=== PATIENT | male | born 1995 | race Caucasian/White ===

== ENCOUNTER 2020-12-12 20:20 | Emergency (ER) | payer OTHER ==
[~2020-12-12] VITALS: Ht 172.7 cm; Wt 93.0 kg
[2020-12-12 20:28] VITALS: BP_SYST 138
[2020-12-12] MEDS ORDERED: MIDAZOLAM HCL 5 MG/5 ML VIAL IVP ONE (21:00)
[2020-12-12] MEDS ORDERED: HALOPERIDOL LACTATE 5 MG/ML VIAL IVP ONE (21:00)
== END 2020-12-12 21:25 | disposition left against medical advice (07) ==
LOC: SED 20:20
DX: F15.90 Other stimulant use, unspecified, uncomplicated (principal); F41.9 Anxiety disorder, unspecified; R00.0 Tachycardia, unspecified
CPT/HCPCS: 93005; 99283

== ENCOUNTER 2020-12-16 08:48 | Emergency (ER) | payer OTHER ==
[~2020-12-16] VITALS: Ht 172.7 cm; Wt 72.6 kg
[2020-12-16] MEDS ORDERED: LORazepam 2 MG/ML VIAL ONE (08:55)
[2020-12-16] MEDS ORDERED: LORazepam 2 MG/ML VIAL IM ONE (09:00)
[2020-12-16] MEDS ORDERED: LORazepam 1 MG TABLET PO ONE (09:00)
[2020-12-16 09:18] LABS: CANNABINOID, URINE POSITIVE (NEG <=50)
[2020-12-16 09:19] LABS: BARBITURATE, URINE NEGATIVE (NEG <=200); BENZODIAZEPINE, URINE NEGATIVE (NEG <=150); COCAINE, URINE NEGATIVE (NEG <=150); METHAMPHETAMINES SCREEN,URINE POSITIVE (NEG <=500); OPIATE, URINE NEGATIVE (NEG <=100); PHENCYCLIDINE SCREEN,URINE NEGATIVE (NEG <=25); UR TRICYCLIC ANTIDEPRESSANTS NEGATIVE (NEG <=300); URINE AMPHETAMINE POSITIVE (NEG <=500); URINE METHADONE NEGATIVE (NEG <=200); URINE OXYCODONE SCREEN NEGATIVE (NEG <=100); URINE PROPOXYPHENE SCREEN NEGATIVE (NEG <=300)
[2020-12-16 13:36] VITALS: BP_SYST 140
== END 2020-12-16 13:36 | disposition home or self-care (01) ==
LOC: SED 08:48
DX: F15.129 Other stimulant abuse with intoxication, unspecified (principal); F41.9 Anxiety disorder, unspecified; R45.1 Restlessness and agitation; F20.9 Schizophrenia, unspecified; Z79.899 Other long term (current) drug therapy
CPT/HCPCS: 80307; 99283; J2060